=== PATIENT | male | born 1960 | race Caucasian/White ===

== ENCOUNTER 2017-05-16 06:54 | Inpatient (IN) | payer MEDICARE, OTHER ==
[~2017-05-16] VITALS: Ht 180.3 cm; Wt 83.0 kg
--- NOTE | ~2017-05-16 | EKG ---
PATIENT: PERRI PAUL UNIT #: [id number] Ventricular Rate: 108 BPM Atrial Rate: 108 BPM P-R Interval: 168 ms QRS Duration: 100 ms Q-T Interval: 336 ms QTC Calculation(Bezet): 450 ms P [place]: 63 degrees Calculated R [place]: 7 degrees Calculated T [place]: 125 degrees Diagnosis Line: Sinus tachycardia Diagnosis Line: Left atrial enlargement Diagnosis Line: Inferior infarct (cited on or before 22-JUN-2016) Diagnosis Line: ST and T wave abnormality, consider lateral ischemia Diagnosis Line: Abnormal ECG Diagnosis Line: When compared with ECG of 22-JUN-2016 07:30, Diagnosis Line: T wave inversion now evident in Lateral leads Diagnosis Line: Confirmed by YANET IZAGUIRRE MD ([id number]) on 05/16/2017 Diagnosis Line: 2:07:02 PM INTERPRETING MD: ZINA DEE
--- NOTE | ~2017-05-16 | HP ---
Unit #: [id number] #: [id number] Patient: WOOD MOLINA SR [id number] [address] [address] [id number] Trevin MR#: [id number] NAME: WOOD MOLINA SR ROOM: 548 Age: 56 Sex: M Admission Date: 05/16/2017 : 1960 Attending Physician: Mary Turner M.D. Primary Care Physician: No Primary Care Physician HISTORY AND PHYSICAL CHIEF COMPLAINT Shortness of breath. HISTORY OF PRESENT ILLNESS Mr. Wood Molina is a 56-year-old male who is very well known to me from multiple medical problems, who has severe cardiomyopathy, came with a history of shortness of breath which was gradually getting worse over the last two to three days. He was having wheezing. He was having cough. He does not complain of any sputum production. He does not complain of fever, chills, or rigors. He has tried to take Mucinex over the counter which was not getting better. In ER, patient's room air pulse oximetry was 88%, was admitted to the hospital. He does not complain of chest pain. He does not complain of hemoptysis. PAST MEDICAL HISTORY 1. Coronary artery disease with a history of CABG in the past. 2. History of ischemic cardiomyopathy with ejection fraction of 15% to 20%. 3. Chronic systolic congestive heart failure. 4. History of dxia-cu-lvgufrrg tricuspid valve regurgitation, moderately dilated aortic root. 5. Pulmonary hypertension. 6. Hypertension. 7. Hyperlipidemia. 8. Diabetes mellitus type 2. 9. COPD. PAST SURGICAL HISTORY 1. History of CABG about nine years ago. 2. History of ankle surgery. 3. History of cholecystectomy. 4. History of cystoscopy. ALLERGIES Diclofenac and sitagliptin. FAMILY HISTORY Significant for heart disease in mom. SOCIAL HISTORY He is a smoker. According to him, he has quit smoking. No history of alcohol abuse or drug abuse. REVIEW OF SYSTEMS Unit #: [id number] #: [id number] Patient: WOOD MOLINA SR As per history of presenting illness. HOME MEDICATIONS As per med rec. Please refer to that. I have reviewed at length. PHYSICAL EXAMINATION VITAL SIGNS: Stable. Patient is afebrile. Blood pressure is 132/80. GENERAL: Patient is awake, alert, oriented x3. SKIN: Warm and dry. HEENT: Head is normocephalic. Pupils are equal and reacting to light. NECK: Supple. JVD is positive. CHEST: Decreased air entry bilateral. Wheezing is heard. Rhonchi is heard. CARDIOVASCULAR: S1, S2 positive. Regular rhythm. ABDOMEN: Soft, nontender. EXTREMITIES: One plus pedal edema is present bilateral. CENTRAL NERVOUS SYSTEM: Awake, alert, oriented x3. No focal neurologic deficit. DIAGNOSTIC STUDIES LABORATORY: Lab workup shows WBC 10.6, hemoglobin 13.7. Potassium 5.1, sodium 138, creatinine 1.2. BNP 1386. Troponin is negative. Lactic acid 2.9. Blood cultures pending. ASSESSMENT Patient is being admitted to telemetry unit with a diagnosis of: 1. Acute hypoxic respiratory failure. 2. Acute exacerbation of chronic obstructive pulmonary disease. 3. Acute on chronic systolic congestive heart failure with ejection fraction of 10% to 15%. 4. Diabetes mellitus type 2, uncontrolled. 5. Hypertension. 6. Hyperlipidemia. 7. Obstructive sleep apnea. PLAN Plan is admit to telemetry unit. Dr. Loco has been consulted. IV steroids and mini neb treatment is being started. Insulin is being adjusted according to hyperglycemia. Home medications have been adjusted. Dr. Elizalde has been consulted. Tobacco cessation counseling has been done. Because I think he is still smoking, nicotine patch will be placed if needed. This was explained to patient. Please refer to progress note for further orders. Dictated by Bernice Alexander/lety TD: 05/17/2017 17:23 JOB #: [id number] Unit #: [id number] #: [id number] Patient: WOOD MOLINA SR HISTORY AND PHYSICAL Page 1 of 1 X Mary Turner MD HISTORY AND PHYSICAL
--- NOTE | ~2017-05-16 | DS ---
Unit #: [id number] #: [id number] Patient: PERRI MOLINA SR [id number] [address] [address] [id number] I MR#: [id number] NAME: PERRI MOLINA SR ROOM: 548 Age: 56 Sex: M Admission Date: 05/16/2017 : 1960 Discharge Date: 05/18/2017 Attending Physician: Mary Turner M.D. Primary Care Physician: No Primary Care Physician DISCHARGE SUMMARY FINAL DIAGNOSES 1. Acute hypoxic respiratory failure. 2. Acute exacerbation of chronic obstructive pulmonary disease. 3. Acute on chronic systolic congestive heart failure. 4. Ischemic cardiomyopathy with ejection fraction of 10-15%. 5. Diabetes mellitus type 2. 6. Hypertension. 7. Hyperlipidemia. 8. History of coronary artery bypass graft. 9. History of myocardial infarction in November 2015, status post percutaneous coronary intervention to the circumflex. 10. History of moderate mitral regurgitation. 11. Pulmonary hypertension. DISCHARGE MEDICATIONS 1. Nebulizer treatment, continue at home. 2. Prednisone tapering dose by Dr. Loco. 3. Valsartan 320 mg q. day. 4. Actos 30 mg before breakfast. 5. Bystolic 10 mg q. day. 6. Bumex 1 mg twice a day. 7. Levemir 15 units b.i.d. 8. Zithromax 250 mg q. day. 9. Aspirin 81 mg q. day. 10. Hydrocodone on a p.r.n. basis. 11. Potassium 20 mEq q. day. 12. Spironolactone 12.5 mg q. day. 13. Lipitor 40 mg q. h.s. CONSULTATION DURING HOSPITALIZATION Dr. Elizalde from Cardiology Services and Dr. Loco from [facility]. LAB WORKUP ON DISCHARGE Glucose is 86, TSH 1.52, sodium 137, potassium 4.5, chloride 99, BUN 30, creatinine 1.2. Hemoglobin A1c 6.5. Blood cultures were negative. CBC shows WBC 8.7, hemoglobin 13.2, hematocrit 38.8, and platelet count of 121. HOSPITAL COURSE Mr. Molina is a 56-year-old male who was admitted to the hospital with shortness of breath. Patient was diagnosed with acute COPD exacerbation Unit #: [id number] #: [id number] Patient: HUMBERTO SUBRAMANIAN,PERRI and acute on chronic systolic congestive heart failure. Patient's ejection fraction is 10-15%. Dr. Elizalde was consulted. Patient was treated with IV diuretics. COPD exacerbation was treated with IV Solu-Medrol and antibiotics and nebulizer treatment. Patient is doing much better at this time, is being discharged home. Some medications have been adjusted including adding Aldactone. Patient continued smoke. Tobacco cessation counseling was done. Patient is being discharged home in stable condition. VITAL SIGNS on discharge - blood pressure is 127/78, respiratory rate 18, pulse 78, temperature 97.4. CHEST - a few faint crackles are positive left base, right side is clear. CVS - S1, S2 positive. regular rhythm. ABDOMEN is soft. EXTREMITIES - negative edema. DISCHARGE INSTRUCTIONS 1. Patient is being discharged home in stable condition. 2. Follow up with Dr. Oconnell in 2-3 weeks. 3. 1800 mL fluid restriction. 4. Congestive heart failure education. 5. Followup with Dr. Loco in 2 weeks. Dictated by... Mary Turner M.D. SUHA/betsey TD: 05/19/2017 08:33 JOB #: [id number] DISCHARGE SUMMARY Page 1 of 1 X Mary Turner MD X DISCHARGE SUMMARY
--- NOTE | ~2017-05-16 | CO ---
Unit #: [id number] #: [id number] Patient: PERRI MOLINA SR [id number] [address] [place], [place] [address] [id number] I MR#: [id number] NAME: PERRI MOLINA SR ROOM: 548 Age: 56 Sex: M Admission Date: 05/16/2017 : 1960 Attending Physician: Mary Turner M.D. Primary Care Physician: Primary Care Physician No Consultation Date: 05/16/2017 CONSULTATION REPORT REASON FOR CONSULTATION Respiratory failure and COPD. HISTORY OF PRESENT ILLNESS A 56-year-old gentleman, whom we have seen before in the past. He has COPD, ongoing active tobacco use, severe cardiomyopathy with EF of 15%. He presents with 2- to 3-day history of increased shortness of breath. He had wheezing cough, but no sputum production until today. He said he took some Mucinex and got "a little up." He presented to the emergency room, where saturations on room air were 88% and he was admitted to the hospital. He feels better today. He denies chest pain, hemoptysis, or fever. PAST MEDICAL HISTORY Remarkable for COPD; obstructive sleep apnea, noncompliant with CPAP; history of chronic respiratory failure, but oxygen has been picked up; history of coronary artery disease; severe cardiomyopathy; hypertension; diabetes; hyperlipidemia. MEDICATIONS At home, he has 2 albuterol inhalers, but has no controlling inhalers. He denies any oxygen at home. He is on hydrocodone, Lasix, Bumex, potassium, Bystolic, Actos, Valsartan, aspirin, and Levemir insulin. This is per med rec sheet. ALLERGIES Diclofenac and Januvia. SOCIAL HISTORY Smokes a pack to pack and a half cigarettes a day. He used to smoke 3 packs of cigarettes a day. FAMILY HISTORY Coronary artery disease. REVIEW OF SYSTEMS No fever, chills, or weight loss. No chest pain or palpitations. No abdominal pain, melena, hematochezia, hematemesis, hematuria, or dysuria. He has had some swelling, but no leg pain. Further review of systems negative. PHYSICAL EXAMINATION GENERAL: Reveals a patient, who is in no acute distress. He looks older than stated age. Unit #: [id number] #: [id number] Patient: PERRI MOLINA SR VITAL SIGNS: He is afebrile. Pulse 93, respiratory rate is 20, blood pressure 145/89. HEENT: Pupils equal, round, and reactive to light. Sclerae anicteric. Head atraumatic. NECK: Supple. No supraclavicular or cervical adenopathy appreciated. Mucous membranes are moist. He is edentulous. CHEST: Some coarse expiratory breath sounds. No consolidation. No stridor. CARDIAC: Reveals distant heart tones. Regular rate and rhythm. No pathologic murmur, rub, or gallop noted. ABDOMEN: Soft and nontender. No hepatomegaly or rebound. EXTREMITIES: Reveal trace to 1+ bilateral edema. SKIN: Warm and dry without definite rash or diaphoresis. He remains clothed with his blue jeans on and boots on. NEUROLOGICAL: Intact. No focal motor or sensory deficits. DIAGNOSTIC STUDIES LABORATORY RESULTS: Room air saturations were 88%. On admission, BUN is 11, creatinine is 1.2. BNP 1386. Lactic acid 2.4. INR normal. Cardiac enzymes normal. White blood cell count 10.6, hemoglobin 13.7, platelet count 116. Requisite blood cultures are pending. IMAGING STUDIES: Chest x-ray, cardiomegaly. No acute infiltrates. CARDIOVASCULAR STUDIES: EKG, sinus tachycardia with some T-wave inversion laterally. No old EKG for comparison. IMPRESSION 1. Hypoxemic respiratory failure, multifactorial. 2. Acute exacerbation of chronic obstructive pulmonary disease. 3. Severe left ventricular dysfunction. Elevated BNP possibly component of pulmonary edema. 4. Ongoing active tobacco use. 5. Obstructive sleep apnea, noncompliant with CPAP. 6. Noncompliance with inhaled controlling agents. 7. Ongoing active tobacco use. 8. Medical problems listed above. PLAN Pulse IV steroids. Antibiotics for possible bronchitis. Certainly, no smoking is a great benefit and this has been discussed. Compliance with prescribed medications has been discussed. Oxygenation needs will be checked at discharge. I would suggest diuresis as well and he will need clarification of his medications at discharge according to his med rec sheet. He is on Lasix and Bumex. Thank you very much for allowing me to participate in the care of Mr. Molina. Dictated by... Khai Loco M.D. ANGELL UIS/awilda TD: 05/16/2017 16:28 JOB #: [id number] CC: Mary Turner M.D. Unit #: [id number] #: [id number] Patient: PERRI MOLINA SR CONSULTATION REPORT Page 1 of 1 X Khai Loco MD CONSULTATION REPORT
--- NOTE | ~2017-05-16 | CO ---
Unit #: [id number] #: [id number] Patient: PERRI PAUL SR [id number] [address] [place], [place] [address] [id number] I MR#: [id number] NAME: PERRI PAUL SR ROOM: 548 Age: 56 Sex: M Admission Date: 05/16/2017 : 1960 Attending Physician: Mary Turner M.D. Consultation Date: 05/16/2017 CONSULTATION REPORT REASON FOR CONSULTATION Congestive heart failure. HISTORY OF PRESENT ILLNESS The patient is a 56-year-old male, who is well known to us in the past. He has a history of ischemic cardiomyopathy with last noted ejection fraction in 2015 to be 15% to 20%. At that time, the patient apparently had refused a LifeVest. He has a history of coronary artery bypass graft surgery 9 years ago. His last cardiac cath was in 11/[address]-elevation NM. He was noted to have normal left main 99% circumflex before the obtuse marginal branch, mid circumflex was 99%, ramus 40% to 50%, LAD was occluded after the first septal machine learning intern, mid RCA 99%. There were a patent MULLINS to the LAD, and patent saphenous vein graft to the right coronary artery. The patient underwent a drug-eluting stent placement x2 to the proximal to mid circumflex. The patient comes to the hospital now with a 1-week history of productive cough with yellow thick sputum. He has also developed some swelling in his ankles. He admits to continuing the use of tobacco and not being complaint with his fluid and salt restriction. He had an elevated BNP on admission, and we were asked to see for further evaluation. He also complains of some orthopnea. PAST MEDICAL HISTORY Significant for coronary artery disease with coronary artery bypass graft surgery 9 years ago, MULLINS to the LAD, and saphenous vein graft to the RCA, EF 15% to 20%, ischemic cardiomyopathy, chronic systolic heart failure. Cardiac cath in 11/2015 normal left main 99% circumflex, proximal 99%, mid ramus 40% to 50%, LAD occluded after the first septal machine learning intern, saphenous vein graft to the right coronary artery patent, status post angioplasty and stenting with two drug-eluting stents to the proximal to mid circumflex, [id number] tricuspid valve regurgitation, moderately dilated aortic root. The patient has refused ICD or LifeVest. Hypertension, hyperlipidemia, diabetes, COPD, cholecystectomy. SOCIAL HISTORY The patient continues to smoke on a daily basis. No alcohol or drug abuse. Noncompliant with his sodium and fluid restriction. FAMILY HISTORY Noncontributory. PHYSICAL EXAMINATION GENERAL: The patient is awake and alert, in no apparent distress. Color is pink. Unit #: [id number] #: [id number] Patient: PERRI PAUL SR SKIN: Warm and dry. NEURO: No focal motor or sensory deficit. VITAL SIGNS: Afebrile, heart rate 83, blood pressure 132/80. HEENT: Pupils equal, round, and reactive. Normal carotid upstrokes. No auscultated bruit. Positive JVD. Lying supine. Negative hepatojugular reflux. CHEST: Respirations are mildly labored with exertion. Bilateral breath sounds have rhonchi and wheezes heard throughout. HEART: S1 and S2. Regular rate and rhythm. No murmurs, rubs, or gallops. ABDOMEN: Soft, nontender, and nondistended. Positive bowel sounds in all 4 quadrants. No ascites noted. EXTREMITIES: Bilateral lower extremities have 1+ ankle edema. DP/PT pulses are 2+. Cap refill less than 3 seconds. Moves all extremities without difficulty. No visual defects. DIAGNOSTIC STUDIES CARDIOVASCULAR STUDIES: EKG shows sinus tach, old inferior wall NM, LVH, and nonspecific ST-wave abnormalities. LABORATORY RESULTS: White blood cell count 10.6, hemoglobin 13.7, hematocrit 40.4, and platelet count 116. Sodium 138, potassium 5.1, chloride 101, CO2 of 28, BUN 11, creatinine 1.2, glucose 256. BNP 1386. Lactic acid 2.9. Blood cultures are pending. Troponin negative x2. IMPRESSION 1. Acute on chronic systolic heart failure mild. 2. Probable acute chronic obstructive pulmonary disease exacerbation with upper respiratory infection. 3. Ischemic cardiomyopathy. 4. Extensive history of coronary artery disease, status post drug-eluting stent x2 to the circumflex in 11/2015. 5. Hypertension. 6. Hyperlipidemia. 7. Diabetes. 8. Continued tobacco abuse. 9. Noncompliant with fluid and salt restriction. PLAN The patient was started on IV Bumex. Today, we will add strict I and O fluid restrictions low-sodium diet. We will check daily labs to monitor kidney function and electrolytes closely. I have added low-dose Aldactone 12.5 mg daily and we will check a 2D echo to reassess LV function. Dictated by... MALI Mckeon/awilda TD: 05/16/2017 17:55 JOB #: [id number] Unit #: [id number] #: [id number] Patient: PERRI PAUL SR CONSULTATION REPORT Page 1 of 1 X X CONSULTATION REPORT
--- NOTE | ~2017-05-16 | CR72 ---
[facility] A Service of [facility] RADIOLOGY TEXT RESULTS PATIENT: PERRI PAUL SR LOCATION: [place] [address] : [birth year] UNIT #: [id number] AGE: [address]: Mary Turner MD SEX: M ORDER DR: [id number] [facility] [address]. [place], [place] [address] [id number] MR#: [id number] Acc #: [id number] NAME: PERRI PAUL SR : 1960 SEX: M STUDY DATE/TIME: 05/16/2017 7:46 UNIT: CEDOF ROOM: 25791 STUDY DESCRIPTION: CR Chest Single View Portable Attending Physician: Mary Turner M.D. Ordering Physician: Aashish Krueger M.D. Primary Care Physician: Primary Care Physician No MEDICAL IMAGING REPORT This report is preliminary unless electronic signature is present EXAM Portable chest, 05/16/2017 HISTORY Shortness of breath and generalized weakness for 2 days. Benign essential hypertension, COPD exacerbation, congestive heart failure, diabetes, coronary artery disease and CABG. FINDINGS The heart is enlarged but stable compared with 06/23/2016 status post median sternotomy. The lungs are clear. There are no pleural effusions. IMPRESSION Stable cardiomegaly compared with 06/23/2016. No active pulmonary disease. Dictated by... Angel Fermin M.D. THIS IS AN ELECTRONICALLY VERIFIED REPORT Angel Fermin M.D. at 05/17/2017 10:33 AM BONNIE/martin TD: 05/16/2017 09:14 JOB #: [id number] MEDICAL IMAGING REPORT Page 1 of 1 COPY
[~2017-05-16 06:54] MED LIST: ABILIFY; ABILIFY PO; ALBUTEROL MININEB NEB; ALBUTEROL17 GM INH; ASPIRIN81 MG PO; ASPIRINEC PO; ATARAX PO; ATENOLOL; BRILINTA90 MG PO; COZAAR25 MG PO; DEPAKOTE; DICLOFENAC PO; GLUCOPHAGE XR500 MG; GLUCOPHAGE XR500 MG PO; GLUCOTROL PO; HCTZ PO; HUMALOG MIX 75/10 ML SUBQ; HUMALOG MIX 75/23 ML SUBQ; IMDUR PO; IMDUR-ER30 M1 PO; IMDUR-ER30 M2 PO; JANUVIA PO; K-DUR20 ME1 PO; KCL PO; KEFLEX PO; KROGER PHARMACY; LASIX20 MG PO; LEVAQUIN PO; LEVAQUIN750 MG PO; LEVEMIR FL100 UNIT/1 SUBQ; LIPITOR; LIPITOR PO; LIPITOR80 MG PO; LISINOPRIL PO; LISINOPRIL2.5 MG PO; LOPRESSOR PO; LORTAB 10-5001 EACH PO; LORTAB 7.5-5001 TAB PO; LOSARTAN POTASS25 MG PO; METFORMIN HCL850 MG PO; METFORMIN PO; NITROGLYCERIN0.4 MG SL; NITROGYLCERIN SUBLINGUAL; NITROLINGUAL12 G1 SL; NORCO 5/325 TAB1 TAB PO; NORVASC; NORVASC PO; NOVOLOG100 U/M2; PATIENT'S PHARMACY; PHENERGAN25 MG PO; PROAIR RESPICL90 MCG INH; SYMBICORT INH; TYLOX 5-500 CA1 EACH PO; TYLOX 5/500 CAP1 CAP PO; UNKNOWN MED; VICODIN 5/1 TAB 5/50 PO; ZOLOFT PO; ZYPREXA PO; [UNRECOGNIZED DRUG - OTHER]; [UNRECOGNIZED DRUG - REMARK]
[2017-05-16 07:26] LABS: BASOPHIL# 0.1 X10e3 (0-0.3); BASOPHIL% 0.6 % (0-2.5); EOSINOPHIL# 0.1 X10e3 (0-0.7); HEMATOCRIT 40.4 % (38.0-50.0); HEMOGLOBIN 13.7 gm/dL (13.0-16.0); LYMPHOCYTE# 0.2 X10e3 (1.0-3.5); MEAN CELL VOLUME 94.6 FL (83-96); MEAN CORPUSCULAR HEMOGLOBIN 32.1 PG (28-34); MEAN CORPUSCULAR HGB CONC 33.9 g/dL (30-36); MEAN PLATELET VOLUME 9.4 FL (6.5-11.5); MONOCYTE# 0.9 X10e3 (0-1.0); MONOCYTE% 8.7 % (3.0-12.0); NEUTROPHIL# 9.3 X10e3 (1.5-7.1); NEUTROPHIL% 87.7 % (40-75); PLATELET COUNT 116 X10e3 (140-420); RED BLOOD COUNT 4.27 X10e (3.90-5.60); RED CELL DISTRIBUTION WIDTH 13.5 % (11.0-15.5); WHITE BLOOD COUNT 10.6 X10e3 (4.0-10.5)
[2017-05-16 07:38] LABS: DIFF IND NO
[2017-05-16 07:41] LABS: POC - CKMB 1.1 ng/mL (0.0-7.9); POC - TROPONIN <0.05 ng/mL (<=0.05)
[2017-05-16 07:49] LABS: INR 1.1; PARTIAL THROMBOPLASTIN TIME 23.5 SECONDS (23.5-31.3); PROTHROMBIN TIME (PATIENT) 11.8 SECONDS (10.0-11.7)
[2017-05-16 07:56] LABS: BILIRUBIN, DIRECT 0.5 mg/dL (0.0-0.2); BILIRUBIN,INDIRECT 1.4 mg/dL (0.0-0.9); BILIRUBIN,TOTAL 1.9 mg/dL (0.2-2.0); BUN/CREATININE RATIO 9.16; CALCIUM SERUM 9.2 mg/dL (8.4-10.2); CREATININE SERUM 1.2 mg/dL (0.6-1.4); GLOM FILT RATE Estimated 67.7 mL/min (>60); POTASSIUM 5.1 mmol/L (3.5-5.1); PROTEIN TOTAL SERUM 6.7 g/dL (6.0-8.3)
[2017-05-16] MEDS ORDERED: PATIENT'S PHARMACY (09:31)
[2017-05-16] MEDS ORDERED: ACTOS PO (09:32)
[2017-05-16] MEDS ORDERED: LASIX20 MG PO (09:32)
[2017-05-16] MEDS ORDERED: BUMEX1 MG PO (09:32)
[2017-05-16] MEDS ORDERED: HYDROCODON-ACE1 EAC7 PO (09:32)
[2017-05-16] MEDS ORDERED: METFORMIN PO (09:32)
[2017-05-16] MEDS ORDERED: KCL PO (09:32)
[2017-05-16] MEDS ORDERED: BYSTOLIC10 MG PO (09:32)
[2017-05-16] MEDS ORDERED: VALSARTAN-HCTZ1 EAC4 PO (09:33)
[2017-05-16] MEDS ORDERED: ASPIRIN81 M2 PO (09:34)
[2017-05-16] MEDS ORDERED: LEVEMIR FL100 UNIT/1 SUBQ (09:34)
[2017-05-16 10:57] LABS: POC - CKMB <1.0 ng/mL (0.0-7.9); POC - TROPONIN <0.05 ng/mL (<=0.05)
[2017-05-17 05:37] LABS: HEMATOCRIT 38.8 % (38.0-50.0); HEMOGLOBIN 13.2 gm/dL (13.0-16.0); MEAN CORPUSCULAR HEMOGLOBIN 31.6 PG (28-34); MEAN PLATELET VOLUME 9.3 FL (6.5-11.5); RED BLOOD COUNT 4.18 X10e (3.90-5.60); RED CELL DISTRIBUTION WIDTH 13.1 % (11.0-15.5); WHITE BLOOD COUNT 8.7 X10e3 (4.0-10.5)
[2017-05-17 06:30] LABS: BUN/CREATININE RATIO 16.36; CREATININE SERUM 1.1 mg/dL (0.6-1.4); GLOM FILT RATE Estimated 75.2 mL/min (>60); MAGNESIUM 1.8 mg/dL (1.6-3.0)
[2017-05-18 05:34] LABS: CALCIUM SERUM 8.8 mg/dL (8.4-10.2); CREATININE SERUM 1.2 mg/dL (0.6-1.4); GLOM FILT RATE Estimated 67.7 mL/min (>60); MAGNESIUM 2.1 mg/dL (1.6-3.0); POTASSIUM 4.5 mmol/L (3.5-5.1)
[2017-05-18] MEDS ORDERED: DELTASONE20 MG PO (13:24)
[2017-05-18] MEDS ORDERED: DIOVAN320 MG PO (13:26)
[2017-05-18] MEDS ORDERED: ADVAIR 250-501 EAC1 INH (13:28)
[2017-05-18] MEDS ORDERED: AZITHROMYCIN250 MG PO (13:29)
[2017-05-18] MEDS ORDERED: ALDACTONE25 MG PO (13:31)
[2017-05-18] MEDS ORDERED: LIPITOR40 MG PO (13:32)
== END 2017-05-18 15:02 | disposition home or self-care (01) | DRG 291 ==
LOC: CED 06:54 → CEDOF 08:34 → CED 09:10 → CEDOF 09:10 → C5B 10:16 → CEDOF 10:16 → C5B 05-18 15:02
PROVIDERS: Emergency Medicine; Internal Medicine; Physician Assistant Medical
PROC: B24BYZZ Ultrasonography of Heart with Aorta using Other Contrast (ICD-10-PCS; principal; 2017-05-17)
DX: I11.0 Hypertensive heart disease with heart failure (principal); J96.01 Acute respiratory failure with hypoxia; J44.1 Chronic obstructive pulmonary disease with (acute) exacerbation; I50.23 Acute on chronic systolic (congestive) heart failure; E11.65 Type 2 diabetes mellitus with hyperglycemia; E78.5 Hyperlipidemia, unspecified; G47.33 Obstructive sleep apnea (adult) (pediatric); I25.10 Atherosclerotic heart disease of native coronary artery without angina pectoris; Z95.1 Presence of aortocoronary bypass graft; F17.210 Nicotine dependence, cigarettes, uncomplicated; I25.5 Ischemic cardiomyopathy; Z95.5 Presence of coronary angioplasty implant and graft; Z90.49 Acquired absence of other specified parts of digestive tract; Z91.19 Patient's noncompliance with other medical treatment and regimen; I08.1 Rheumatic disorders of both mitral and tricuspid valves; I25.2 Old myocardial infarction; I27.2 Other secondary pulmonary hypertension
CPT/HCPCS: 71010; 80048; 80076; 82553; 82947; 83036; 83605; 83735; 83880; 84443; 84484; 85025; 85027; 85610; 85730; 87040; 93005; 93306; 94640; 94664; 94760; 96374; 99291; J1650; J1815; J2920; J2930